=== PATIENT | female | born 1960 | race Caucasian/White ===

== ENCOUNTER 2018-08-17 15:52 | Emergency (ER) | payer BC, OTHER ==
[~2018-08-17] VITALS: Ht 154.9 cm; Wt 60.8 kg
[2018-08-17 16:09] LABS: URINE BILIRUBIN NEGATIVE (Negative); URINE BLOOD 2+ (Negative); URINE CLARITY CLEAR; URINE COLOR YELLOW; URINE GLUCOSE-RANDOM* NEGATIVE (Negative); URINE KETONES NEGATIVE (Negative); URINE LEUKOCYTES-REFLEX NEGATIVE (Negative); URINE NITRITE-REFLEX NEGATIVE (Negative); URINE PROTEIN (DIPSTICK) NEGATIVE (Negative); URINE SPECIFIC GRAVITY <= 1.005 (1.005-1.035); URINE UROBILINOGEN 0.2 E.U./dl (0.2-1.0)
[2018-08-17 16:19] LABS: BACTERIA-REFLEX 1-9 Few /HPF (None Seen); CASTS None Seen /LPF (None Seen); CRYSTALS None Seen /LPF (None Seen); SQUAMOUS 0-3 Few /LPF (0-3); URINE RBC 3-10 Few /HPF (0-2); URINE WBC-REFLEX None Seen /HPF (0-5)
[2018-08-17 16:20] LABS: ABSOLUTE NEUTROPHILS 1.7 thou/uL (1.4-8.2); BASOPHILS 0.8 % (0.0-2.0); EOSINOPHILS 2.7 % (0.0-3.0); HEMATOCRIT 38.1 % (37.0-47.0); LYMPHOCYTES 52.6 % (24.0-44.0); MCH 31.2 pg (26.0-34.0); MCHC 34.3 g/dL (28.0-37.0); MONOCYTES 9.8 % (1.0-8.0); PLATELET COUNT 207 thou/uL (150-400); POLYS 34.1 % (36.0-66.0); RBC 4.18 mil/uL (4.20-5.00); RDW 13.3 % (10.5-14.5); WBC 4.9 thou/uL (4.0-11.0)
[2018-08-17 16:31] LABS: CALCIUM 9.2 mg/dL (8.5-10.1); CREATININE 0.8 mg/dL (0.6-1.0)
[2018-08-17 16:36] LABS: ALBUMIN 3.8 g/dL (3.4-5.0); TOTAL BILIRUBIN 0.6 mg/dL (<0.1-1.0); TOTAL PROTEIN 7.1 g/dL (6.4-8.2)
[2018-08-17] MEDS ORDERED: ONDANSETRON HCL4 M2 PO (17:59)
[2018-08-17] MEDS ORDERED: TRAMADOL 50 MG50 MG PO (18:40)
[2018-08-17 19:04] VITALS: BP 142/84
== END 2018-08-17 19:00 | disposition home or self-care (01) ==
LOC: ER 15:52
PROVIDERS: Nurse Practitioner Family
DX: K56.7 Ileus, unspecified (principal)